=== PATIENT | female | born 2005 | race Caucasian/White ===

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

== ENCOUNTER 2023-12-06 20:25 | Emergency (ER) | payer BC, SELFPAY ==
[2023-12-06 20:44] VITALS: BP 124/72; PULSE 66; RESP 16; TEMP 37; O2SAT 98
--- NOTE | 2023-12-06 21:17 | ED.GENADULT ---
HPI - General Adult General Chief complaint: Wound/Laceration Stated complaint: left thumb laceration Time Seen by Provider: 12/06/23 20:27 History of Present Illness HPI narrative: 18-year-old female presents to the emergency department for evaluation for lacerations secondary to cutting tomatoes. Patient states just prior to arrival she was preparing dinner accidentally cut her left thumb. Patient reports tetanus is up-to-date. Patient denies any intent for self-harm. Related Data Home Medications Medication Instructions Recorded Confirmed desogestrel-e.estradiol 0.15 1 tablet PO DAILY 05/21/20 05/21/20 mg-0.02 mg(21)/e.estrad 0.01 mg(5) tablet (Viorele (28)) valacyclovir 1 gram tablet 1,000 mg PO DAILY 05/21/20 05/21/20 Allergies Allergy/AdvReac Type Severity Reaction Status Date / Time No Known Allergies Allergy Verified 12/06/23 20:48 Review of Systems Review of Systems: All systems reviewed & are unremarkable except as noted in HPI and below Exam Narrative: APPEARANCE: Well appearing, no pain, no distress, well-nourished. HEAD: normocephalic, atraumatic. EYES: PERRLA/EOMI, conjunctivae clear. NOSE: Normal no drainage NECK: Supple. No adenopathy, no masses. RESPIRATORY: Airway patent, respirations nonlabored. Clear to auscultation bilaterally, no rales, rhonchi, wheezing. CARDIOVASCULAR: Regular rate and rhythm without murmurs rubs or gallops. ABDOMINAL: Soft, nontender, nondistended, normal bowel sounds MUSCULOSKELETAL: Moves all extremities. Strength/ROM intact, No edema, No calf tenderness. NEURO: Alert. Cranial nerves II through XII intact. Grossly intact SKIN: Laceration to left thumb Course Vital Signs Vital signs: Vital Signs Temperature 98.6 F 12/06/23 20:44 Pulse Rate 66 12/06/23 20:44 Respiratory Rate 16 12/06/23 20:44 Blood Pressure 124/72 12/06/23 20:44 Pulse Oximetry 98 12/06/23 20:44 Oxygen Delivery Room Air 12/06/23 20:44 Temperature 98.6 F 12/06/23 20:44 Pulse Rate 66 12/06/23 20:44 Respiratory Rate 16 12/06/23 20:44 Blood Pressure 124/72 12/06/23 20:44 Pulse Oximetry 98 12/06/23 20:44 Oxygen Delivery Room Air 12/06/23 20:44 Procedures Laceration Laceration 1: Site: upper extremity Side (If applicable): left Size (cm): 3 Description: linear Depth: simple, single layer Local Anesthetic: lidocaine 1% Amount of anesthesia used (mL): 5 Pre-repair: wound explored, irrigated and irrigated extensively ====== Skin Level ====== Skin layer closed with: nylon Size (cm): 4-0 Number of sutures: 5 Technique: simple, interrupted ====== Subcutaneous Layer ====== ====== Muscle Layer ====== ====== Tendon Layer ====== Medical Decision Making MDM Narrative Medical decision making narrative: 18-year-old female presenting to the emergency department for evaluation for an injury to her left thumb while she was cutting tomatoes. Patient denies any attempt at self-harm. Laceration was repaired as described in the procedure note. Patient's tetanus is up-to-date. Patient was updated on wound care and patient was encouraged to have close follow-up with her primary care physician. Vital Signs Vital Signs: Vital Signs Temperature 98.6 F 12/06/23 20:44 Pulse Rate 66 12/06/23 20:44 Respiratory Rate 16 12/06/23 20:44 Blood Pressure 124/72 12/06/23 20:44 Pulse Oximetry 98 12/06/23 20:44 Oxygen Delivery Room Air 12/06/23 20:44 Temperature 98.6 F 12/06/23 20:44 Pulse Rate 66 12/06/23 20:44 Respiratory Rate 16 12/06/23 20:44 Blood Pressure 124/72 12/06/23 20:44 Pulse Oximetry 98 12/06/23 20:44 Oxygen Delivery Room Air 12/06/23 20:44 Discharge Plan Discharge Clinical Impression: Laceration Patient Disposition: Home, Self-Care Condition: Stable Instructions: Antibiotic Form, Lac
== END 2023-12-06 21:35 | disposition home or self-care (01) ==
PROVIDERS: Emergency Provider Emergency Medicine
DX: S61.012A Laceration without foreign body of left thumb without damage to nail, initial encounter (principal); W26.0XXA Contact with knife, initial encounter; Y93.G1 Activity, food preparation and clean up
CPT/HCPCS: 12002; 99282

== ENCOUNTER 2024-08-07 10:20 | Emergency (ER) | payer OTHER, BC, SELFPAY ==
[2024-08-07 10:31] VITALS: BP 126/70; PULSE 83; RESP 16; TEMP 36.1; O2SAT 99
--- NOTE | 2024-08-07 11:41 | ED_ITS ---
HPI - URI/Sore Throat General Chief Complaint: Upper Respiratory Infection Stated Complaint: COVID,flu exp left lung hurts bodyaches Time Seen by Provider: 08/07/24 11:28 Source: patient and RN notes reviewed Mode of arrival: ambulatory Limitations: no limitations History of Present Illness HPI Narrative: Patient presents today with a one-week history of body aches, chills, rhinorrhea, sore throat, cough, and left lateral lung pain. Denies congestion, fever, shortness of breath. States she was exposed to COVID and influenza prior to onset of symptoms. She has taken DayQuil and ibuprofen without much relief. No history of asthma. She does vape and smoke marijuana. Related Data Allergies Allergy/AdvReac Type Severity Reaction Status Date / Time No Known Allergies Allergy Verified 08/07/24 10:39 Review of Systems Review of Systems: CONSTITUTIONAL: Denies fever, or sweats. +body aches, chills EYES: Denies visual changes, redness, or discharge. ENT: Denies otalgia.+congestion, sore throat, rhinorrhea CARDIOVASCULAR: Denies chest pain, palpitations, or edema. RESPIRATORY: Denies dyspnea.+ cough, lung pain GASTROINTESTINAL: Denies abdominal pain, nausea, vomiting, or diarrhea. GENITOURINARY: Denies dysuria or hematuria. SKIN: Denies rash, itching, or wounds. MUSCULOSKELETAL: Denies back pain, joint pain, or myalgia. NEUROLOGIC: Denies headache, numbness, tingling, or weakness. PSYCH: Denies depression or anxiety. PMFSH Comments At time of signature, I have reviewed and agree with nursing past medical, surgical, social and family history unless otherwise noted. Please see nursing chart for further information. There is no relevant family history pertinent to the presenting complaint Exam Narrative: GENERAL: Well-appearing, well-nourished, and in no acute distress. HEAD: Normocephalic, atraumatic. EYES: EOMI. No redness or drainage. Conjunctivae normal. ENT: Mucous membranes pink and moist. Nares clear. No rhinorrhea. TMs normal bilaterally. Throat normal. Uvula midline. NECK: Normal AROM. Supple. No lymphadenopathy. CHEST: No respiratory distress. Clear to auscultation. Mild tenderness to the left lateral ribs without crepitus, step-off HEART: Regular rate and rhythm. No murmur appreciated. EXTREMITIES: Normal range of motion. No edema. SKIN: Warm, dry, no rash. Capillary refill normal. Normal skin turgor. NEURO: No focal deficits. Alert and oriented x3. Gait steady. PSYCH: Normal affect. No signs of depression or anxiety. Course Course Level of Care: Express Care Visit Vital Signs Vital signs: Vital Signs Temperature 97.0 F L 08/07/24 10:31 Pulse Rate 83 08/07/24 10:31 Respiratory Rate 16 08/07/24 10:31 Blood Pressure 126/70 08/07/24 10:31 Pulse Oximetry 99 08/07/24 10:31 Oxygen Delivery Room Air 08/07/24 10:31 Temperature 97.0 F L 08/07/24 10:31 Pulse Rate 83 08/07/24 10:31 Respiratory Rate 16 08/07/24 10:31 Blood Pressure 126/70 08/07/24 10:31 Pulse Oximetry 99 08/07/24 10:31 Oxygen Delivery Room Air 08/07/24 10:31 Reviewed MDM - URI/Sore Throat MDM Narrative Medical decision making narrative: Testing negative. Symptoms likely viral in etiology. Discussed [id number] medication use and duration of illness. No prescription medications indicated at this time. Instructed patient that since she is she cannot take ibuprofen. Anticipatory guidance given. Differential Diagnosis Differential diagnosis: Likely upper respiratory infection, viral infection, influenza and other (COVID-19) Lab Data Attestation: I reviewed the patient's lab results. Lab results narrative: COVID-19 and influenza negative Critical Care Time Critical Care Time Critical Care Time: No Discharge Plan Discharge Clinical Impression: Upper respiratory infection Qualifiers: URI type: unspecified URI Qualified Code(s): J06.9 - Acute upper respiratory infection, unspecified Patient Disposition: Home, Self-Care Condition: Stable Instructions: Upper Respiratory Infection (DC) Additional Instructions: Your influenza and COVID-19 tests are negative today. Your symptoms are likely due to a viral illness, which is not treated with antibiotics. Virus symptoms can last for up to 7-10days. Take Tylenol for pain or fever. Rest and stay hydrated. Follow up with your PCP in 7 days if symptoms are not improving. Go to the ER immediately if you develop shortness of breath, difficulty swallowing, worsening rib pain, or any other concerning symptoms. Your blood pressure was elevated above 120/80 today at Urgent Care. This puts you above the threshold for follow up. Please schedule a followup visit with your personal physician as soon as possible, for further evaluation and treatment. Even blood pressure exceeding 120/80 may indicate pre-hypertension. Patient Language: Tristanian Follow-up/Referrals: PHYSICIAN,INSTRUMENT REPAIRER [employer] [Primary Care Provider] - Stand Alone Forms: Work/School Release IP Time of Disposition: 11:49
[2024-08-07 11:47] LABS: EDCOVIDSCREEN Negative (Negative); EDINFLUASCREEN Negative (Negative); EDINFLUBSCREEN Negative (Negative); EDSTREPNEGPOS1 Negative (Negative)
== END 2024-08-07 11:50 | disposition home or self-care (01) ==
PROVIDERS: Emergency Provider Nurse Practitioner
DX: O99.519 Diseases of the respiratory system complicating pregnancy, unspecified trimester (principal); J06.9 Acute upper respiratory infection, unspecified; Z3A.00 Weeks of gestation of pregnancy not specified; Z20.822 Contact with and (suspected) exposure to COVID-19; O99.330 Smoking (tobacco) complicating pregnancy, unspecified trimester; F17.290 Nicotine dependence, other tobacco product, uncomplicated; O99.320 Drug use complicating pregnancy, unspecified trimester; F12.90 Cannabis use, unspecified, uncomplicated
CPT/HCPCS: 87081; 87426; 87804; 87880; 99213; G0463